=== PATIENT | male | born 1990 | race Caucasian/White ===

== ENCOUNTER 2016-12-09 22:32 | Emergency (ER) | payer OTHER ==
[2016-12-09 23:38] VITALS: TEMP 96.8
[2016-12-09] MEDS ORDERED: LIDOCAINE 2% W/ EPINEPHRINE 20 ML VIAL INJ ONE (23:52)
--- NOTE | 2016-12-10 00:15 | ED.PDOC ---
History of Present Illness - General Chief Complaint: Dental/Mouth Stated Complaint: Dental pain Time Seen by Provider: 12/10/16 00:12 Source: patient Exam Limitations: no limitations - History of Present Illness Initial Comments: Leonel Cho 26 y/o male stated his had tooth ache since yesterday and painful to chew. Timing/Duration: yesterday EENT Location: dental Prearrival Treatment: no prearrival treatment Presenting Symptoms: toothache Improving Factors: nothing Worsening Factors: eating Associated Symptoms: denies symptoms Allergies/Adverse Reactions: Allergies NO KNOWN ALLERGY Allergy (Unverified 10/05/14 20:49) Home Medications: Ambulatory Orders Clindamycin HCl 300 mg PO BID #20 cap 12/10/16 Review of Systems - Review of Systems All other Systems: Reviewed and Negative, No Change from Baseline Past Medical History (General) - Patient Medical History Hx Seizures: No Hx Stroke: No Hx Dementia: No Hx Asthma: No Hx of COPD: No Hx Cardiac Disorders: No Hx Congestive Heart Failure: No Hx Pacemaker: No Hx Hypertension: No Hx Thyroid Disease: No Hx Diabetes: No Hx Gastroesophageal Reflux: No Hx Renal Disease: No Hx Cancer: No Hx of HIV: No Hx Hepatitis C: No Hx MRSA: No Surgical History: other - Vaccination History Hx Tetanus, Diphtheria Vaccination: Yes Hx Influenza Vaccination: No Hx Pneumococcal Vaccination: No Immunizations Up to Date: Yes - Social History Hx Tobacco Use: Yes Hx Alcohol Use: Yes Family Medical History - Family History Mother Living Status: Still Living Physical Exam - Physical Exam General Appearance: Alert, No apparent distress Eye Exam: bilateral normal Ear Exam: bilateral ear: auricle normal, canal normal, TM normal Nasal Exam: normal inspection Throat Exam: normal mouth inspection, dental tenderness - left upper 1st molar Neck: full range of motion, supple Cardiovascular/Respiratory: regular rate, rhythm, no M/R/G, normal peripheral pulses Abdominal Exam: non-tender, no organomegaly Progress - Progress Progress: 12/10/16 00:27 Vital Signs - 8 hr 12/09/16 23:34 Temperature 96.8 F L Pulse Rate [ 60 Left Radial] Respiratory 18 Rate Blood Pressure 130/76 [Right Arm] O2 Sat by Pulse 99 Oximetry - Results/Orders Results/Orders: Left infraorbital nerve block done tolerated procedure well patient felt better was advised that he might have blackeye in am Departure - Departure Clinical Impression: Pain due to dental caries Time of Disposition: 00:27 Disposition: Discharge to Home or Self Care Departure Forms: ED Discharge - Pt. Copy, Patient Portal Self Enrollment Instructions: DI for Tooth Decay Diet: other - SOFT diet until better Referrals: Prosper Carney MD [Primary Care Provider] - 1-2 Weeks Prescriptions: Clindamycin HCl 300 mg PO BID #20 cap Home Medications: Ambulatory Orders Clindamycin HCl 300 mg PO BID #20 cap 12/10/16 Additional Instructions: NEED TO FOLLOW UP WITH DENTIST PATRICIA
[2016-12-10] MEDS ORDERED: CLINDAMYCIN HCL CAP 150 MG CAP PO ONE (00:18)
[2016-12-10] MEDS ORDERED: HYDROCOD/APAP 7.5/325 (ER DISP) #3 TAB PO ONE (00:32)
[2016-12-10 00:44] VITALS: BP 128/85; O2SAT 97
== END 2016-12-10 00:44 | disposition home or self-care (01) ==
LOC: ER 22:32
DX: K02.9 Dental caries, unspecified (principal)